=== PATIENT | female | born 1995 | race Caucasian/White ===

== ENCOUNTER 2019-07-11 19:24 | Outpatient (CLI) | payer OTHER ==
[2019-07-11] MEDS ORDERED: PRENATA CHEWAB1 EACH PO (20:02)
== END 2019-07-12 19:39 | disposition home or self-care (01) ==
LOC: OBS/DEL 19:24
DX: O26.893 Other specified pregnancy related conditions, third trimester (principal); R10.2 Pelvic and perineal pain

== ENCOUNTER 2019-08-16 15:30 | Inpatient (IN) | payer OTHER ==
[~2019-08-16] VITALS: Ht 165.1 cm; Wt 70.8 kg
[~2019-08-16 15:30] MED LIST: PRENATA CHEWAB1 EACH PO
== END 2019-09-18 11:45 | disposition home or self-care (01) | DRG 807 ==
LOC: OB/GYN 09-16 04:37 → LDR 09-16 04:37 → OB/GYN 09-16 09:11
PROVIDERS: ADMIT Obstetrics & Gynecology
PROC: 10E0XZZ Delivery of Products of Conception, External Approach (ICD-10-PCS; principal; 2019-09-16)
PROC: 10907ZC Drainage of Amniotic Fluid, Therapeutic from Products of Conception, Via Natural or Artificial Opening (ICD-10-PCS; 2019-09-16)
PROC: 4A1HXFZ Monitoring of Products of Conception, Cardiac Rhythm, External Approach (ICD-10-PCS; 2019-09-16)
PROC: 3E033VJ Introduction of Other Hormone into Peripheral Vein, Percutaneous Approach (ICD-10-PCS; 2019-09-16)
DX: O80 Encounter for full-term uncomplicated delivery (principal); Z37.0 Single live birth; Z3A.39 39 weeks gestation of pregnancy; Z30.2 Encounter for sterilization; Z53.29 Procedure and treatment not carried out because of patient's decision for other reasons

== ENCOUNTER 2019-09-10 18:01 | Outpatient (CLI) | payer OTHER | END 2019-09-11 09:58 | disposition home or self-care (01) | LOC: OBS/DEL 18:01 | DX: O47.1 False labor at or after 37 completed weeks of gestation (principal) ==